=== PATIENT | male | born 2000 | race African-American/Black ===

== ENCOUNTER 2025-04-26 09:10 | Outpatient (CLI) | payer OTHER | END 2025-04-26 09:11 | disposition home or self-care (01) | LOC: CSHULT 09:10 | PROVIDERS: ATTEND Nurse Practitioner Family | DX: R19.04 Left lower quadrant abdominal swelling, mass and lump (principal); R16.1 Splenomegaly, not elsewhere classified | CPT/HCPCS: 76700 ==